=== PATIENT | male | born 1940 | race Caucasian/White ===

== ENCOUNTER 2017-03-17 18:54 | Observation (INO) | payer MEDICARE, OTHER ==
[~2017-03-17] VITALS: Ht 177.8 cm; Wt 103.6 kg
[~2017-03-17 18:54] MED LIST: HTN
[2017-03-17] MEDS ORDERED: SOD CHLORIDE 0.9% 500 ML IV STA (19:26)
[2017-03-17 20:07] LABS: BASOPHIL # 0.1 10^3/ul (0.0-0.1); BASOPHILS % 0.6 % (0.0-2.0); EOSINOPHILS # 0.4 10^3/ul (0.0-0.5); EOSINOPHILS % 4.9 % (0.0-7.0); HEMATOCRIT 44.9 % (42.0-52.0); HEMOGLOBIN 15.3 g/dl (14.0-18.0); LYMPHOCYTES # 2.3 10^3/ul (0.8-2.9); MEAN CORPUSCULAR HEMOGLOBIN 33.6 pg (29.0-33.0); MEAN CORPUSCULAR HGB CONC 34.1 g/dl (32.0-37.0); MEAN CORPUSCULAR VOLUME 98.7 fl (82.0-101.0); MEAN PLATELET VOLUME 9.4 fl (7.4-10.4); MONOCYTE # 0.6 10^3/ul (0.3-0.9); MONOCYTES % 7.7 % (0.0-11.0); NEUTROPHIL # 4.5 10^3/ul (1.6-7.5); PLATELET COUNT 301 10^3/UL (140-415); RED BLOOD COUNT 4.55 10^6/ul (4.70-6.10); RED CELL DISTRIBUTION WIDTH 12.5 % (11.5-14.5); WHITE BLOOD COUNT 7.9 10^3/ul (4.8-10.8)
[2017-03-17] MEDS ORDERED: LISI40TA9 PO (20:09)
[2017-03-17] MEDS ORDERED: VERA240C2 PO (20:11)
[2017-03-17 20:28] LABS: ANION GAP 11 (8-16); BLOOD UREA NITROGEN 13 mg/dl (7-20); CALCIUM 8.7 mg/dl (8.4-10.2); CARBON DIOXIDE 30 mmol/L (21-31); CHLORIDE 106 mmol/L (97-110); GLUCOSE 116 mg/dl (70-220); POTASSIUM 3.5 mmol/L (3.5-5.1); SODIUM 143 mmol/L (135-144)
[2017-03-17 20:41] LABS: TROPONIN-I < 0.012 ng/ml (0.00-0.12)
[2017-03-17 20:44] LABS: ADD UMIC YES; UR ASCORBIC ACID NEGATIVE (NEGATIVE); UR BILIRUBIN (Dip) NEGATIVE (NEGATIVE); UR BLOOD (Dip) 1+ mg/dL (NEGATIVE); UR CLARITY CLEAR (CLEAR); UR COLOR YELLOW (YELLOW); UR GLUCOSE (Dip) NEGATIVE (NEGATIVE); UR KETONES (Dip) NEGATIVE (NEGATIVE); UR LEUKOCYTE ESTERASE (Dip) NEGATIVE Leu/ul (NEGATIVE); UR NITRITE (Dip) NEGATIVE (NEGATIVE); UR RBC 3 /HPF (0-5); UR TOTAL PROTEIN (Dip) 1+ mg/dl (NEGATIVE); UR UROBILINOGEN (Dip) 2+ mg/dL (NEGATIVE)
--- NOTE | 2017-03-17 21:48 | RADRPT ---
PROCEDURE: XR Chest. CLINICAL INDICATION: Near-syncope. TECHNIQUE: Single frontal view of the chest. COMPARISON: 04/02/2012 FINDINGS: Cardiomegaly and atherosclerotic calcifications in the thoracic aorta. Decreased lung inflation over interval, which accentuates pulmonary vascular markings. Mild pulmonary vascular congestion and mil d bibasilar atelectasis versus airspace disease. No signs of pleural fluid or pneumothorax are seen. The osseous structures and soft tissues are unremarkable. IMPRESSION: Mild failure. RPTAT: UU Physician Omega Date Time Electronically viewed and signed by Physician Omega on 03/17/2017 21:47 RS/
[2017-03-17] MEDS ORDERED: ACETAMINOPHEN 325 MG TAB PO PRN (23:00)
[2017-03-17] MEDS ORDERED: ONDANSETRON 4 MG INJ IV PRN (23:00)
--- NOTE | 2017-03-17 23:11 | ERD ---
ER Documentation Chief Complaint Chief Complaint CARLOS ALBERTO RA81,dizziness,near syncope,hypotension SBP 76 HPI 76 year old male presenting after a near syncopal episode. Has a history of hypertension only. He states he was washing dishes when he suddenly felt dizzy and had to sit down. He did not have complete loss of consciousness. He denies any associated chest pain, shortness of breath, focal weakness, focal numbness, abnormal speech., Or headache. He states that he felt like he was about to sweat but did not. Denies any fevers or chills. No nausea or vomiting. ROS All systems reviewed and are negative except as per history of present illness. Medications Home Meds Reported Medications Verapamil Hcl* (Verapamil ER*) 240 Mg Cap24h.pel, 360 MG PO DAILY, CAP 03/17/17 Lisinopril* (Lisinopril*) 40 Mg Tablet, 40 MG PO DAILY, #30 TAB 03/17/17 Discontinued Reported Medications [Htn] No Conflict Check 04/02/12 Allergies Allergies: Coded Allergies: No Known Allergy (Unverified , 03/17/17) PMhx/Soc Medical and Surgical Hx: pt denies Surgical Hx History of Surgery: No Anesthesia Reaction: No Hx Neurological Disorder: No Hx Respiratory Disorders: No Hx Cardiac Disorders: Yes (HTN) Hx Psychiatric Problems: No Hx Miscellaneous Medical Probl: No Hx Alcohol Use: Yes (daily) Hx Substance Use: No Hx Tobacco Use: Yes Smoking Status: Current every day smoker FmHx Family History: No diabetes Physical Exam Vitals Vital Signs Date Time Temp Pulse Resp B/P Pulse Ox O2 Delivery O2 Flow Rate FiO2 03/17/17 22:00 64 16 130/82 95 Room Air 03/17/17 19:10 80 18 133/97 100 Room Air 03/17/17 18:59 97.9 86 18 132/87 96 Physical Exam Const: well appearing, no apparent distress. non toxic Head: Atraumatic Eyes: Normal Conjunctiva, strabismus at baseline. PERRLA ENT: Normal External Ears, Nose and Mouth. Neck: Full range of motion..~ No meningismus. No JVD Resp: Clear to auscultation bilaterally Cardio: Regular rate and rhythm, no murmurs. 2+ distal pulses Abd: Soft, non tender, non distended. Normal bowel sounds Skin: No petechiae or rashes Back: No midline or flank tenderness Ext: No cyanosis, or edema Neur: Awake and alert, oriented 3, no facial asymmetry, strength and sensations intact in all 4 extremities. Psych: Normal Mood and Affect Result Diagram: 03/17/17192903/17/171929 Results 24 hrs Laboratory Tests Test 03/17/17 19:30 03/17/17 19:41 03/17/17 20:20 White Blood Count 7.910^3/ul Red Blood Count 4.5510^6/ul Hemoglobin 15.3g/dl Hematocrit 44.9% Mean Corpuscular Volume 98.7fl Mean Corpuscular Hemoglobin 33.6pg Mean Corpuscular Hemoglobin Concent 34.1g/dl Red Cell Distribution Width 12.5% Platelet Count 43832^3/UL Mean Platelet Volume 9.4fl Neutrophils % 57.0% Lymphocytes % 29.0% Monocytes % 7.7% Eosinophils % 4.9% Basophils % 0.6% Nucleated Red Blood Cells % 0.0/100WBC Neutrophils # 4.510^3/ul Lymphocytes # 2.310^3/ul Monocytes # 0.610^3/ul Eosinophils # 0.410^3/ul Basophils # 0.110^3/ul Nucleated Red Blood Cells # 0.010^3/ul Sodium Level 143mmol/L Potassium Level 3.5mmol/L Chloride Level 106mmol/L Carbon Dioxide Level 30mmol/L Anion Gap 11 Blood Urea Nitrogen 13mg/dl Creatinine 1.00mg/dl Glucose Level 116mg/dl Calcium Level 8.7mg/dl Troponin I < 0.012ng/ml Bedside Glucose 124mg/dL Urine Color YELLOW Urine Clarity CLEAR Urine pH 7.0 Urine Specific [place] 1.010 Urine Ketones NEGATIVEmg/dL Urine Nitrite NEGATIVEmg/dL Urine Bilirubin NEGATIVEmg/dL Urine Urobilinogen 2+mg/dL Urine Leukocyte Esterase NEGATIVELeu/ul Urine Microscopic RBC 3/HPF Urine Microscopic WBC 1/HPF Urine Hemoglobin 1+mg/dL Urine Glucose NEGATIVEmg/dL Urine Total Protein 1+mg/dl Current Medications Medications (Trade) Dose Ordered Sig/Joy Route PRN Reason Start Time Stop Time Status Last Admin Dose Admin Sodium Chloride (NS) 500 ml @ 500 mls/hr Q1H STAT IV 03/17/17 19:26 03/17/17 20:25 DC Ondansetron HCl (Zofran Inj) 4 mg ER BRIDGE PRN IV NAUSEA AND/OR VOMITING 03/17/17 23:00 03/18/17 22:59 Acetaminophen (Tylenol Tab) 650 mg ER BRIDGE PRN PO MILD PAIN/FEVER 03/17/17 23:00 03/18/17 22:59 Procedures/MDM EMERGENT LABS AND DIAGNOSTIC STUDIES: Lab Results above were reviewed and interpreted by me. CBC, BMP, troponin all within normal limits 12-lead EKG #1was interpreted by Kory Garcia MD: Atrial fibrillation with normal rate Normal axis Normal intervals No acute ST or T wave changes suggestive of acute ischemia or STEMI. 12-lead EKG #2 was interpreted by Kory Garcia MD: Atrial fibrillation with normal rate Normal axis Normal intervals No acute ST or T wave changes suggestive of acute ischemia or STEMI. Radiology Results as interpreted by Radiology below were reviewed by Jennie Garcia MD: CXR: evidence of mild failure Initial Nursing notes reviewed. Previous Medical Records requested via the Electronic Health Record. EMERGENCY DEPARTMENT COURSE / MEDICAL DECISION MAKING: The patient presented after a near syncopal episode. Differential includes but is not limited to cardiac arrhythmia or ischemia, pulmonary embolism, vasovagal syncope, situational syncope, dehydration with orthostatic hypotension, hemorrhage, sepsis, stroke ,ICH, hypoglycemia. I have a low suspicion for pulmonary embolism, dissection, seizure, stroke, or serious head injury. Blood sugar was normal. EKG showed atrial fibrillation at a normal rate with no evidence of ischemia. Labs were within normal limits. Chest Xray showed evidence of mild failure. Given the patients medical history and risk factors, occult etiology such as fatal dysrhythmia cannot be ruled out. Per the patient and his family, he has never been diagnosed with an arrhythmia before. I do not believe patient is safe for discharge and will need admission for telemetry monitoring and further workup. Accepting Care Team: Current data and ongoing care discussed. Time: Time of admission Primary Provider: Jayesh Outstanding Data: none Departure Diagnosis: Primary Impression: Near syncope Condition: Serious SIS GARCIA MD Mar 17, 2017 23:11
[2017-03-18] VITALS (11 sets, daily range): BP systolic 131–173; BP diastolic 90–103; PULSE 50–84; RESP 18–20; Ht 177.8 cm; Wt 103.6 kg
[2017-03-18] MEDS ORDERED: hydrALAzine 20 MG INJ ONE (01:50)
[2017-03-18] MEDS ORDERED: hydrALAzine 20 MG INJ IV PRN (02:00)
[2017-03-18 05:47] LABS: CREATINE KINASE 55 IU/L (23-200)
[2017-03-18 06:02] LABS: CK-MB 1.36 ng/ml (0.0-2.4); TROPONIN-I < 0.012 ng/ml (0.00-0.12)
[2017-03-18 07:30] LABS: BASOPHILS % 0.6 % (0.0-2.0); EOSINOPHILS # 0.2 10^3/ul (0.0-0.5); EOSINOPHILS % 3.6 % (0.0-7.0); HEMOGLOBIN 14.8 g/dl (14.0-18.0); LYMPHOCYTES # 1.6 10^3/ul (0.8-2.9); LYMPHOCYTES % 24.9 % (15.0-51.0); MEAN CORPUSCULAR HEMOGLOBIN 33.6 pg (29.0-33.0); MEAN CORPUSCULAR HGB CONC 34.4 g/dl (32.0-37.0); MEAN CORPUSCULAR VOLUME 97.7 fl (82.0-101.0); MEAN PLATELET VOLUME 9.3 fl (7.4-10.4); MONOCYTE # 0.6 10^3/ul (0.3-0.9); MONOCYTES % 8.5 % (0.0-11.0); NEUTROPHIL # 4.1 10^3/ul (1.6-7.5); NEUTROPHILS % 62.1 % (39.0-77.0); PLATELET COUNT 282 10^3/UL (140-415); RED CELL DISTRIBUTION WIDTH 12.9 % (11.5-14.5); WHITE BLOOD COUNT 6.6 10^3/ul (4.8-10.8)
[2017-03-18 07:41] LABS: ALBUMIN 3.5 g/dl (3.3-4.9); ALBUMIN/GLOBULIN RATIO 1.02; BILIRUBIN,INDIRECT 0.9 mg/dl (0-1.1); BILIRUBIN,TOTAL 0.9 mg/dl (0.2-1.3); CALCIUM 9.1 mg/dl (8.4-10.2); CHOL/HDL RATIO 2.7 RATIO; CREATININE 0.79 mg/dl (0.61-1.24); POTASSIUM 3.5 mmol/L (3.5-5.1); TOTAL PROTEIN 6.9 g/dl (6.1-8.1)
[2017-03-18 08:11] LABS: THYROID STIMULATING HORMONE 3.12 MIU/L (0.465-4.680)
[2017-03-18] MEDS: LISINOPRIL 20 MG TAB PO SCH ×2 (09:00→09:04)
--- NOTE | 2017-03-18 09:30 | RADRPT ---
PROCEDURE: Carotid ultrasound CLINICAL INDICATION: Near syncope, carotid bruits TECHNIQUE: Temple scale, color doppler, spectral doppler ultrasound of the bilateral carotid and edgard tebral arteries. This study indirectly references the measurement of the distal ICA diameter as the denominator for s tenosis measurement. Validated velocity measurements with angiographic measurements, velocity criter ia are extrapolated from diameter data as defined by: *Cartoid artery stenosis: temple-scale and Doppl er US diagnosis. Society of Radiologists in Ultrasound Consensus Conference. Radiology 2003; 229: 34 0-346. SRU Consensus Conference Criteria for the Diagnosis of Carotid Artery Stenosis* Degree of Stenosis, % ICA PSV, cm/sec Plaque Estimate, % ICA/CCA PSV Ratio Normal <125 None <2.0 <50 <125 <50 <2.0 50 69 125-230 >50 2.0-4.0 >70 but less than near occlusion >230 >50 <4.0 Near occlusion High, low, or undetectable Visible Variable Total occlusion Undetectable Visible, no detectable lumen Not applicable COMPARISON: No prior studies are available for comparison. FINDINGS: Location Right CCA54 - 83 cm/sec Prox ICA 57 cm/sec Mid ICA44 cm/sec Dist ICA63 cm/sec ECA65 cm/sec ICA/CCA1.2 Left CCA74 - 80 cm/sec Prox ICA 46 cm/sec Mid ICA38 cm/sec Dist ICA62 cm/sec ECA67 cm/sec ICA/CCA0.8 Plaque burden: Minimal plaque is present bilaterally. Antegrade flow is seen within the vertebral arteries bilaterally. IMPRESSION: No evidence of a hemodynamically significant carotid stenosis. RPTAT: AADD .Marcos Yo MD, Date Time Electronically viewed and signed by .Marcos Yo MD, MD on 03/18/2017 09:29 .B/
[2017-03-18] MEDS ORDERED: ASPIRIN (EC) 325 MG TAB PO SCH (10:00)
--- NOTE | 2017-03-18 10:01 | HP ---
Date/Time of Note Date/Time of Note DATE: 03/18/17 TIME: 09:53 Assessment/Plan Lines/Catheters [facility] Peripheral IV Assessment/Plan Assessment/Plan 1. Near syncope -Likely secondary to newly diagnosed A-fib -Obtain a 2D echo -Check TSH and thyroid profile -Cardiology consult -Carotid Doppler ultrasound and CT of the head -Trend troponin 2. Newly diagnosed atrial fibrillation: Rate controlled -CHADS2 score of 2 for hypertension and age -He will be on aspirin for now. I will hold his home verapamil and will not initiate beta-marva because heart rate at times have been on the lower side 3. Hypertension -Continue outpatient lisinopril. Adjust antihypertensives as needed HPI/ROS Admit Date/Time Admit Date/Time Mar 17, 2017 at 22:45 Hx of Present Illness This is a 76-year-old male with a history of hypertension who presents to the ER complaining of dizziness. He said he was washing dishes when all of a sudden he felt dizzy and almost fainted. He denied chest pain, palpitations, shortness of breath prior to or after the episode. When he presented to the ER he was found to be in A-fib rate controlled. Patient denied history of A-fib. First troponin is negative and basic labs within acceptable range. Chest x-ray showed mild failure. PMH/Family/Social Social History Smoking Status: Current every day smoker Exam/Review of Systems Vital Signs Vitals Vital Signs Date Time Temp Pulse Resp B/P Pulse Ox O2 Delivery O2 Flow Rate FiO2 03/18/17 08:02 98.0 74 18 143/91 96 03/18/17 01:12 Room Air Intake and Output 03/17/17 03/17/17 03/18/17 14:59 22:59 06:59 Intake Total 200 ml Balance 200 ml Exam Constitutional: alert, oriented, well developed Head: atraumatic, normocephalic Eyes: other (Semi-abnormalities noted) Respiratory: clear to auscultation, normal air movement Cardiovascular: irregular rhythm Gastrointestinal: soft Extremities: normal pulses Labs Result Diagram: 03/18/1737 03/18/17636 Medications Medications Current Medications Hydralazine HCl (Apresoline) 10 mg Q4H PRN IV SBP >160 Last administered on t 01:52; Admin Dose 10 MG; Start 03/18/17 at 02:00 Influenza Virus Vaccine (Fluzone) 0.5 ml ONCE ONCE IM* ; Start 03/19/17 at 09:00 ; Stop 03/19/17 at 09:01 Lisinopril (Zestril) 40 mg DAILY PO ; Start 03/18/17 at 09:00 MARJORIE FELDMAN MD Mar 18, 2017 10:01
--- NOTE | 2017-03-18 10:22 | RADRPT ---
PROCEDURE: CT Brain without contrast. CLINICAL INDICATION: Near syncope. TECHNIQUE: A CT of the brain was performed on multidetector high-resolution CT scanner utilizing a xial sections from the skull base through the vertex without contrast. The scan was reviewed in sof t tissue brain and high frequency resolution bone algorithm windows. Images were reviewed on a high -resolution PACS workstation. One or more the following does reduction techniques were utilized: Aut omated exposure control, adjustment of the mA/ or kV according to patient's size, or use of iterativ e reconstruction technique. The exam CTDI = 42.81 mGy and the DLP = 810.25 mGy-cm. DICOM images are available. COMPARISON: Brain CT 04/02/2012. FINDINGS: The ventricles and sulci are moderately prominent indicative of volume loss. There is mild cerebella r volume loss. There is no intracranial hemorrhage, mass effect or midline shift. No abnormal intr a-axial or extra-axial fluid collections are seen. The wei/white matter differentiation is preserve d. There are moderate patchy foci of hypoattenuation in the white matter, which are nonspecific in etio logy but likely reflect chronic small vessel ischemic changes. Small old lacunar infarcts are noted in the left lentiform nucleus and right cerebellum. There are moderate intracranial vascular calci fications consistent with atherosclerosis. The visualized paranasal sinuses are essentially clear. IMPRESSION: 1. No acute intracranial hemorrhage, transcortical infarction or mass effect. 2. Moderate intracranial atherosclerosis and chronic small vessel ischemic changes. 3. Small old lacunar infarcts are noted in the left lentiform nucleus and right cerebellum. 4. Moderate generalized cerebral and mild cerebellar volume loss. RPTAT: HH .Nell Jones MD, MD Date Time Electronically viewed and signed by .Nell Jones MD, MD on 03/18/2017 10:22 .N/
[2017-03-18 11:21] LABS: CREATINE KINASE 66 IU/L (23-200)
[2017-03-18 11:38] LABS: CK-MB 1.37 ng/ml (0.0-2.4); TROPONIN-I < 0.012 ng/ml (0.00-0.12)
--- NOTE | 2017-03-18 14:36 | PN ---
Date/Time of Note Date/Time of Note DATE: 03/18/17 TIME: 14:35 Assessment/Plan VTE Prophylaxis VTE Prophylaxis Intervention: SCD's Lines/Catheters IV [facility]ter [facility]from [facility] [place] Assessment/Plan Chief Complaint/Hosp Course Assessment and plan 1. Near syncope. Suspect secondary to new diagnosis of atrial fibrillation. Continue telemetry monitoring. Echocardiogram is pending. Vocational Rehab Consultant consulted. Will follow up. Carotid Doppler showed no evidence of hemodynamically significant carotid stenosis. 2. Atrial fibrillation.Diagnosis. On aspirin for now. Follow-up with chief payroll clerk for anticoagulation 3. Essential hypertension. Continue antihypertensives and his dyspnea. Disposition plan: Follow-up with chief payroll clerk recommendations. Anticipate discharge within the next 24 hours if medically stable and cleared by consultants Discussed plan of care with Dr. Carmona Problems: Subjective 24 Hr Interval Summary Free Text/Dictation No signs or symptoms of distress. Comfortable at present. Exam/Review of Systems Vital Signs Vitals Vital Signs Date Time Temp Pulse Resp B/P Pulse Ox O2 Delivery O2 Flow Rate FiO2 03/18/17 12:42 Room Air 03/18/17 12:04 97.9 82 18 131/92 94 Intake and Output 03/17/17 03/17/17 03/18/17 15:00 23:00 07:00 Intake Total 200 ml Balance 200 ml Exam Constitutional: alert, oriented Psych: nl mood/affect Head: normocephalic Neck: non-tender, supple Respiratory: clear to auscultation, normal air movement Cardiovascular: irregular rhythm Gastrointestinal: non-tender, soft Musculoskeletal: nl extremities to inspection Neurological: DIRECTOR LEARNING AND DEVELOPMENT II-XII intact, nl mental status, nl speech Skin: nl turgor Results Result Diagram: 03/18/1737 03/18/17 0637 Results 24 hrs Laboratory Tests Test 03/17/17 19:30 03/17/17 19:41 03/17/17 20:20 03/18/17 04:23 White Blood Count 7.9 Red Blood Count 4.55 L Hemoglobin 15.3 Hematocrit 44.9 Mean Corpuscular Volume 98.7 Mean Corpuscular Hemoglobin 33.6 H Mean Corpuscular Hemoglobin Concent 34.1 Red Cell Distribution Width 12.5 Platelet Count 301 Mean Platelet Volume 9.4 Neutrophils % 57.0 Lymphocytes % 29.0 Monocytes % 7.7 Eosinophils % 4.9 Basophils % 0.6 Nucleated Red Blood Cells % 0.0 Neutrophils # 4.5 Lymphocytes # 2.3 Monocytes # 0.6 Eosinophils # 0.4 Basophils # 0.1 Nucleated Red Blood Cells # 0.0 Sodium Level 143 Potassium Level 3.5 Chloride Level 106 Carbon Dioxide Level 30 Anion Gap 11 Blood Urea Nitrogen 13 Creatinine 1.00 Glucose Level 116 Calcium Level 8.7 Troponin I < 0.012 < 0.012 Bedside Glucose 124 Urine Color YELLOW Urine Clarity CLEAR Urine pH 7.0 Urine Specific [place] 1.010 Urine Ketones NEGATIVE Urine Nitrite NEGATIVE Urine Bilirubin NEGATIVE Urine Urobilinogen 2+ H Urine Leukocyte Esterase NEGATIVE Urine Microscopic RBC 3 Urine Microscopic WBC 1 Urine Hemoglobin 1+ H Urine Glucose NEGATIVE Urine Total Protein 1+ H Creatine Kinase 55 Creatine Kinase Index 2.5 Creatinine Kinase MB (Mass) 1.36 Test 03/18/17 06:37 03/18/17 10:11 White Blood Count 6.6 Red Blood Count 4.40 L Hemoglobin 14.8 Hematocrit 43.0 Mean Corpuscular Volume 97.7 Mean Corpuscular Hemoglobin 33.6 H Mean Corpuscular Hemoglobin Concent 34.4 Red Cell Distribution Width 12.9 Platelet Count 282 Mean Platelet Volume 9.3 Neutrophils % 62.1 Lymphocytes % 24.9 Monocytes % 8.5 Eosinophils % 3.6 Basophils % 0.6 Nucleated Red Blood Cells % 0.0 Neutrophils # 4.1 Lymphocytes # 1.6 Monocytes # 0.6 Eosinophils # 0.2 Basophils # 0.0 Nucleated Red Blood Cells # 0.0 Sodium Level 143 Potassium Level 3.5 Chloride Level 108 Carbon Dioxide Level 28 Anion Gap 11 Blood Urea Nitrogen 10 Creatinine 0.79 Glucose Level 95 Hemoglobin A1c 5.2 Calcium Level 9.1 Total Bilirubin 0.9 Direct Bilirubin 0.00 Indirect Bilirubin 0.9 Aspartate Amino Transf (AST/SGOT) 25 Alanine Aminotransferase (ALT/SGPT) 34 Alkaline Phosphatase 106 Total Protein 6.9 Albumin 3.5 Globulin 3.40 H Albumin/Globulin Ratio 1.02 Triglycerides Level 62 Cholesterol Level 152 LDL Cholesterol, Calculated 85 HDL Cholesterol 55 Cholesterol/HDL Ratio 2.7 Thyroid Stimulating Hormone (TSH) 3.120 Creatine Kinase 66 Creatine Kinase Index 2.1 Creatinine Kinase MB (Mass) 1.37 Troponin I < 0.012 Medications Medications Current Medications Hydralazine HCl (Apresoline) 10 mg Q4H PRN IV SBP >160 Last administered on t 01:52; Admin Dose 10 MG; Start 03/18/17 at 02:00 Influenza Virus Vaccine (Fluzone) 0.5 ml ONCE ONCE IM* ; Start 03/19/17 at 09:00 ; Stop 03/19/17 at 09:01 Lisinopril (Zestril) 40 mg DAILY PO ; Start 03/18/17 at 09:00 Aspirin (Ecotrin) 325 mg DAILY PO ; Start 03/18/17 at 10:00 ALIA PRITCHETT Mar 18, 2017 14:36
--- NOTE | 2017-03-18 16:26 | RADRPT ---
Echocardiogram Report Patient Name: TUNG ELIAS Gender: Male Date: 1940 Study Date: 18-Mar-2017 Hotel Front Desk Agent: Georgia Perkins [facility] Location: [id number] Ref. Physician: MARJORIE FELDMAN Quality: Good Procedures: Transthoracic echocardiogram with complete 2D, M-Mode, and doppler examination. Indications: Near Syncope. 2D/M Mode Doppler Measurement Value Normal Ranges Measurement Value Normal Ranges LVIDd 2D 5.2 3.5 - 5.6 cm AV Peak [place] 1.6 m/sec LVIDs 2D 2.8 2.1 - 4.1 cm AV Peak PG 9.9 mmHg LVPWd 2D 1.2 0.6 - 1.1 cm AI Peak PG 73.4 mmHg IVSd 2D 1.2 0.6 - 1.1 cm AI Peak [place] 4.3 m/sec AoR Diam 2D 3.3 2.0 - 3.7 cm AI PHT 484.0 msec EDV 2D 130.8 cm3 ESV 2D 21.7 cm3 LA Dimen 2D 3.2 2.3 - 4.0 cm Findings Left Ventricle: Normal left ventricular systolic function. Normal left ventricular cavity size. Mild concentric left ventricular hypertrophy. Ejection fraction is visually estimated at 6065 %. Tissue Doppler/Mitral Doppler indices are consistent with impaired relaxation (Stage I diastolic dysfunction). Right Ventricle: Normal right ventricular size. Normal right ventricular systolic function. Left Atrium: The left atrium is normal in size. Right Atrium: The right atrium is normal in size. Mitral Valve: Normal appearance of the mitral valve. Mild mitral annular calcification. Trace mitral regurgitation. Aortic Valve: No hemodynamically significant aortic stenosis by doppler. Aortic cusps appear mildly calcified. Mild aortic valve regurgitation. Tricuspid Valve: Normal appearance of the tricuspid valve. Unable to obtain RVSP due to minimal presence of tricuspid regurgitation. Pulmonic Valve: Normal pulmonic valve appearance. Pericardium: Normal pericardium with no significant pericardial effusion. Aorta: Normal aortic root. IVC: Normal size and normal respiratory collapse consistent with normal right atrial pressure. Conclusions 1.The left ventricle is normal in size and systolic function. 2.Estimated left ventricular ejection fraction of 60-65%. 3.Mild concentric left ventricular hypertrophy. Grade 1 diastolic dysfunction. Electronically Signed By: Ronnie Ndiaye 18-Mar-2017 16:26:16 -0800 Patient Name: TUNG ELIAS Study Date: 18-Mar-2017 [id number]
--- NOTE | 2017-03-18 20:04 | CONS ---
Date/Time of Note Date/Time of Note DATE: 03/18/17 TIME: 19:59 Assessment/Plan Assessment/Plan Chief Complaint/Hosp Course Assessment: Paroxysmal atrial fibrillation - new diagnosis, now back in sinus rhythm, CHADS2 score of 2 (age>75, hypertension) Hypertension Tobacco use - counselled on smoking cessation for >10 minutes Recommendations: -discontinue verapamil, start amlodipine 5mg daily (less risk for bradycardia) -continue lisinopril 40mg daily -discontinue aspirin, start Xarelto 20mg daily -echocardiogram showed normal LVEF 60-65%, grade 1 diastolic dysfunction -no additional cardiac work up at this time Problems: Consultation Date/Type/Reason Admit Date/Time Mar 17, 2017 at 22:45 Type of Consultation: Cardiology Reason for Consultation new onset atrial fibrillation Hx of Present Illness The patient is a 76 year-old male who presented with lightheadedness and near syncope. This occurred while he was washing dishes in the kitchen. On presentation, he was noted on EKG to have atrial fibrillation with a ventricular rate in the 70s. This is a new diagnosis of atrial fibrillation for the patient. Since admission, he as spontaneously reverted to and remained in sinus rhythm. 14 point review of systems negative other than per HPI. Past Medical History Medical History: hypertension Past Surgical History Past Surgical Hx: other (left hip replacement) Family History Significant Family History: no pertinent family hx Social History Alcohol Use: occasionally Smoking Status: Current every day smoker Drug Use: none Exam/Review of Systems Vital Signs Vitals Vital Signs Date Time Temp Pulse Resp B/P Pulse Ox O2 Delivery O2 Flow Rate FiO2 03/18/17 16:00 84 03/18/17 15:47 98.1 18 156/103 95 145/101 03/18/17 15:25 Room Air Intake and Output 03/17/17 03/17/17 03/18/17 15:00 23:00 07:00 Intake Total 200 ml Balance 200 ml Exam Constitutional: alert, well developed Psych: nl mood/affect, no complaints Head: atraumatic, normocephalic Eyes: nl conjunctiva, nl lids ENMT: nl external ears & nose, nl nasal mucosa & septum Neck: non-tender, supple, No jvd Respiratory: clear to auscultation, normal air movement Cardiovascular: regular rate and rhythm Gastrointestinal: non-tender, soft Musculoskeletal: nl extremities to inspection Extremities: No clubbing, No cyanosis, No edema Neurological: nl mental status, nl speech Results Result Diagram: 03/18/17 0637 03/18/17 0637 Results 24 hrs Laboratory Tests Test 03/17/17 20:20 03/18/17 04:23 03/18/17 06:37 03/18/17 10:11 Urine Color YELLOW Urine Clarity CLEAR Urine pH 7.0 Urine Specific [place] 1.010 Urine Ketones NEGATIVE Urine Nitrite NEGATIVE Urine Bilirubin NEGATIVE Urine Urobilinogen 2+ H Urine Leukocyte Esterase NEGATIVE Urine Microscopic RBC 3 Urine Microscopic WBC 1 Urine Hemoglobin 1+ H Urine Glucose NEGATIVE Urine Total Protein 1+ H Creatine Kinase 55 66 Creatine Kinase Index 2.5 2.1 Creatinine Kinase MB (Mass) 1.36 1.37 Troponin I < 0.012 < 0.012 White Blood Count 6.6 Red Blood Count 4.40 L Hemoglobin 14.8 Hematocrit 43.0 Mean Corpuscular Volume 97.7 Mean Corpuscular Hemoglobin 33.6 H Mean Corpuscular Hemoglobin Concent 34.4 Red Cell Distribution Width 12.9 Platelet Count 282 Mean Platelet Volume 9.3 Neutrophils % 62.1 Lymphocytes % 24.9 Monocytes % 8.5 Eosinophils % 3.6 Basophils % 0.6 Nucleated Red Blood Cells % 0.0 Neutrophils # 4.1 Lymphocytes # 1.6 Monocytes # 0.6 Eosinophils # 0.2 Basophils # 0.0 Nucleated Red Blood Cells # 0.0 Sodium Level 143 Potassium Level 3.5 Chloride Level 108 Carbon Dioxide Level 28 Anion Gap 11 Blood Urea Nitrogen 10 Creatinine 0.79 Glucose Level 95 Hemoglobin A1c 5.2 Calcium Level 9.1 Total Bilirubin 0.9 Direct Bilirubin 0.00 Indirect Bilirubin 0.9 Aspartate Amino Transf (AST/SGOT) 25 Alanine Aminotransferase (ALT/SGPT) 34 Alkaline Phosphatase 106 Total Protein 6.9 Albumin 3.5 Globulin 3.40 H Albumin/Globulin Ratio 1.02 Triglycerides Level 62 Cholesterol Level 152 LDL Cholesterol, Calculated 85 HDL Cholesterol 55 Cholesterol/HDL Ratio 2.7 Thyroid Stimulating Hormone (TSH) 3.120 Medications Medications Current Medications Hydralazine HCl (Apresoline) 10 mg Q4H PRN IV SBP >160 Last administered on t 01:52; Admin Dose 10 MG; Start 03/18/17 at 02:00 Influenza Virus Vaccine (Fluzone) 0.5 ml ONCE ONCE IM* ; Start 03/19/17 at 09:00 ; Stop 03/19/17 at 09:01 Lisinopril (Zestril) 40 mg DAILY PO ; Start 03/18/17 at 09:00 Aspirin (Ecotrin) 325 mg DAILY PO Last administered on 03/18/17t 14:52; Admin Dose 325 MG; Start 03/18/17 at 10:00 JOSÉ MIGUEL GROVE MD Mar 18, 2017 20:04
[2017-03-18] MEDS ORDERED: RIVAROXABAN 20 MG TABLET PO SCH (21:00)
[2017-03-19] VITALS (9 sets, daily range): BP systolic 130–169; BP diastolic 87–101; PULSE 38–75; RESP 18–20
[2017-03-19] MEDS ORDERED: AMLODIPINE 5 MG TAB PO SCH (09:00)
[2017-03-19] MEDS ORDERED: INFLUENZA VIRUS VACCINE 0.5 ML (DISPENSING) IM* ONE (09:00)
[2017-03-19] MEDS: LISINOPRIL 20 MG TAB PO SCH (09:15)
[2017-03-19] MEDS ORDERED: AMLO-145 PO (14:04)
[2017-03-19] MEDS ORDERED: LISI20TA11 PO (14:04)
[2017-03-19] MEDS ORDERED: RIVA20TA5 PO (14:04)
--- NOTE | 2017-03-19 14:15 | DS ---
Date/Time of Note Date/Time of Note DATE: 03/19/17 TIME: 14:09 Discharge Summary Admission/Discharge Info Admit Date/Time Mar 17, 2017 at 22:45 Discharge Date/Time Discharge Diagnosis 1. Paroxysmal atrial fibrillation, new diagnosis, now back in sinus rhythm, on xarelto, follow up with cardiology 2. Hypertension, medication changed, follow up with PCP 3. Tobacco use, advise to quit Patient Condition: Stable Hospital Course The patient is a 76 year-old male who presented with lightheadedness and near syncope. This occurred while he was washing dishes in the kitchen. On presentation, he was noted on EKG to have atrial fibrillation with a ventricular rate in the 70s. This is a new diagnosis of atrial fibrillation for the patient. Since admission, he as spontaneously reverted to and remained in sinus rhythm. Echocardiography with LVH only. Carotid ultrasound and CT head are unremarkable. TSH 3.12. Patient is seen by supervisor production Dr. Ndiaye, Patient is put on xarelto and his antihypertensives are changed, from verapamil to amlodipine. Patient will follow up with cardiology outpatient. Home Meds Active Scripts Amlodipine Besylate* (Amlodipine Besylate*) 5 Mg Tablet, 5 MG PO DAILY for 30 Days, TAB Prov:CHIQUIS LO MD 03/19/17 Lisinopril* (Lisinopril*) 20 Mg Tablet, 40 MG PO DAILY for 30 Days, TAB Prov:CHIQUIS LO MD 03/19/17 Rivaroxaban* (Xarelto*) 20 Mg Tablet, 20 MG PO WITH DINNER for 30 Days, TAB Prov:CHIQUIS LO MD 03/19/17 Discontinued Reported Medications Verapamil Hcl* (Verapamil ER*) 240 Mg Cap24h.pel, 360 MG PO DAILY, CAP 03/17/17 Lisinopril* (Lisinopril*) 40 Mg Tablet, 40 MG PO DAILY, #30 TAB 03/17/17 [Htn] No Conflict Check 04/02/12 Follow-up Plan PCP and cardiology in one week Primary Care Provider CHIQUIS Guadarrama MD Mar 19, 2017 14:15
== END 2017-03-19 15:14 | disposition home or self-care (01) ==
LOC: E/R 18:54 → TEL 22:45
PROVIDERS: ADMIT Internal Medicine; ATTEND Internal Medicine
DX: I48.0 Paroxysmal atrial fibrillation (principal); I10 Essential (primary) hypertension; Z72.0 Tobacco use; Z23 Encounter for immunization
CPT/HCPCS: 36415; 70450; 71010; 80048; 80053; 80061; 81001; 82550; 82553; 82962; 83036; 84443; 84484; 85025; 90686; 93005; 93306; 93880; 96374; 99285; G0378; J0360; J7040